=== PATIENT | male | born 1980 | race Two or more races ===

== ENCOUNTER 2019-01-24 03:40 | Emergency (ER) | payer SELFPAY ==
[~2019-01-24] VITALS: Ht 182.9 cm; Wt 83.9 kg
[2019-01-24 03:45] VITALS: BP 114/72
--- NOTE | 2019-01-24 03:45 | NUR ---
ED Nurse Note: Patient brought in by RA due to ETOH from [facility]. Patient is unable to provide any information. No SOB. No vomiting at this time. Afebrile. Breathing even and unlabored. IV line established upon arrival. VSS. S/o at bedside.
--- NOTE | 2019-01-24 03:55 | Emergency Room Report ---
History of Present Illness General Chief Complaint: Alcohol Intoxication Source: Patient Present Illness HPI 38-year-old male with no past medical history. He presents with chief complaint of nausea vomiting and alcohol intoxication. He was at the [employer]. He has several drinks tonight. He was vomiting and went to the [facility]. They gave him Zofran. Because they were closing up, they called 911 because they felt that he need to be monitored for a bit longer. Patient say he still felt nauseous. No abdominal pain. No fever chills. Nothing made it better. Nothing made it worse. Came in by ambulance. No other complaint. Allergies: Coded Allergies: No Known Allergies (Unverified , 01/24/19) Patient History Past Medical History: see triage record, old chart reviewed Past Surgical History: none Pertinent Family History: none Immunizations: other Reviewed Nursing Documentation: PMH: Agreed; PSxH: Agreed Nursing Documentation-PMH Past Medical History: No Stated History Review of Systems Eye: Denies: eye pain, blurred vision ENT: Denies: ear pain, nose congestion, throat swelling Respiratory: Denies: cough, shortness of breath Cardiovascular: Denies: chest pain, palpitations Gastrointestinal: Reports: nausea, vomiting; Denies: abdominal pain, diarrhea Musculoskeletal: Denies: back pain, joint pain Skin: Denies: rash Neurological: Denies: headache, numbness Endocrine: Denies: increased thirst, increased urine Hematologic/Lymphatic: Denies: easy bruising All Other Systems: negative except mentioned in HPI Physical Exam Vital Signs Date Time Temp Pulse Resp B/P (MAP) Pulse Ox O2 Delivery O2 Flow Rate FiO2 01/24/19 03:40 99.0 70 16 114/72 (86) 99 Room Air Vitals unremarkable Sp02 EP Interpretation: reviewed, normal General Appearance: well appearing, no apparent distress, alert, other - Intoxicated Head: normocephalic, atraumatic Eyes: bilateral eye PERRL, bilateral eye EOMI ENT: hearing grossly normal, normal pharynx Neck: full range of motion, supple, no meningismus Respiratory: chest non-tender, lungs clear, normal breath sounds Cardiovascular #1: regular rate, rhythm, no murmur Gastrointestinal: normal bowel sounds, non tender, no mass, no organomegaly, no bruit, non-distended Musculoskeletal: back normal, gait/station normal, normal range of motion Psychiatric: mood/affect normal Medical Decision Making Diagnostic Impression: Primary Impression: Acute alcoholic intoxication Qualified Codes: F10.920 - Alcohol use, unspecified with intoxication, uncomplicated ER Course This patient presents with alcohol intoxication. No trauma to warrant x-ray or CT scan. No evidence of acute abdomen. Last Vital Signs Date Time Temp Pulse Resp B/P (MAP) Pulse Ox O2 Delivery O2 Flow Rate FiO2 01/24/19 03:40 99.0 70 16 114/72 (86) 99 Room Air Status: improved Disposition: HOME, SELF-CARE Condition: Stable Patient Instructions: Alcohol Intoxication, [id number] Additional Instructions: Follow-up with your doctor in 7 days. Do not drink to excess. Return if worse. Henok Brooks MD Jan 24, 2019 03:55
[2019-01-24 05:36] VITALS: BP 116/73
--- NOTE | 2019-01-24 05:36 | NUR ---
Note raheel in EDM - 01/24/19 at 0547 by TAWANNA ED Nurse Note: Pt cleared by ERMD for discharge. DC instructions was given and explained to pt and verbalized understanding of teachings. All medical deviecs such as ID band removed. Pt is AAO x4, ambulatory and left with all personal belongings. Accompanied by s/o.
--- NOTE | 2019-01-24 07:07 | NUR ---
HAND-OFF: Report given to Sander COSBY.
--- NOTE | 2019-01-24 07:10 | NUR ---
ED Nurse Note: Received report from HARJEET Benson patient is sleeping accompanied by friend at bedside.
[2019-01-24 08:00] VITALS: BP 110/70
--- NOTE | 2019-01-24 08:00 | NUR ---
Note [email or web address] in EDM - 01/24/19 at 0822 by DIMA ER DISCHARGE NOTE: Patient is cleared to be discharged per ERMD, pt is aox4, on room air, with stable vital signs. pt was given dc and prescription instructions, pt was able to verbalize understanding, pt id band and iv site removed without complications. pt is able to ambulate with steady gait. pt took all belongings.
--- NOTE | 2019-01-24 08:20 | NUR ---
ER DISCHARGE NOTE: Patient is cleared to be discharged per ERMD, pt is aox4, on room air, with stable vital signs. pt was given dc instructions, pt was able to verbalize understanding, pt id band and iv site removed without complications. pt is able to ambulate with steady gait. pt took all belongings.
== END 2019-01-24 05:36 | disposition home or self-care (01) ==
LOC: EDBD 03:40 → EMR 04:30
DX: F10.920 Alcohol use, unspecified with intoxication, uncomplicated (principal)
CPT/HCPCS: 96361; 96374; 99284; J2405; J7030